=== PATIENT | male | born 1930 | race Caucasian/White ===

== ENCOUNTER 2017-05-14 10:03 | Inpatient (IN) ==
[2017-05-14] MEDS ORDERED: ONDANSETRON 4 MG/2 ML VIAL IV STA (10:26)
[2017-05-14] MEDS ORDERED: NITROGLYCERIN 2% OINT 1 INCH/GM PACK TOP STA (10:26)
[2017-05-14] MEDS ORDERED: MORPHINE 2 MG/1 ML SYRINGE IV STA (10:26)
[2017-05-14] MEDS ORDERED: NITROGLYCERIN 2% OINT 1 INCH/GM PACK TOP ONE (10:26)
[2017-05-14] MEDS ORDERED: ASPIRIN 325 MG TABLET PO STA (10:26)
[2017-05-14] MEDS ORDERED: ENOXAPARIN 80 MG/0.8 ML SYRINGE SUBCUT ONE ×2 (10:26→11:08)
[2017-05-14] MEDS ORDERED: MORPHINE 10 MG/1 ML VIAL ONE (10:27)
[2017-05-14] MEDS ORDERED: ONDANSETRON 4 MG/2 ML VIAL ONE (10:27)
[2017-05-14] MEDS ORDERED: ASPIRIN 325 MG TABLET ONE (10:30)
[2017-05-14 10:36] LABS: Basophils % 0.4 % (0.0-0.8); Eosinophils # 0.1 10*3/uL (0.0-0.87); Eosinophils % 0.5 % (0.00-10.9); Hematocrit 44.7 VOL% (42.0-52.0); Hemoglobin 14.8 GM/DL (14.0-18.0); Immature Granulocytes % 0.6 %; Immature Granulocytes Absolute 0.07 #; Lymphocytes % 9.2 % (21.2-54.2); Mean Corpuscular HGB Conc 33.1 GM/DL (32-36); Mean Corpuscular Hemoglobin 34 PG (27-34); Mean Corpuscular Volume 103.7 FL (87-102); Mean Platelet Volume 11.5 FL (9.6-12.0); Monocytes # 0.8 10*3/uL (0.11-0.8); Monocytes % 7.5 % (1.7-12.7); Neutrophils % 81.8 % (38.7-73.9); Platelet Count 178 T/CUMM (130-400); Red Blood Count 4.31 MC/CUMM (3.8-5.5); Red Cell Distribution Width 12.8 % (9.3-17.3)
[2017-05-14] MEDS ORDERED: LIDOCAINE 1% 20 ML VIAL ONE (10:39)
[2017-05-14] MEDS ORDERED: HYDROmorphone 2 MG/1 ML VIAL ONE (10:40)
[2017-05-14] MEDS ORDERED: MIDAZOLAM 2 MG/2 ML VIAL ONE (10:40)
[2017-05-14 10:45] LABS: PT Patient Result 10.7 SECS
[2017-05-14] MEDS ORDERED: ENOXAPARIN 30 MG/0.3 ML SYRINGE ONE (11:01)
[2017-05-14] MEDS ORDERED: TIROFIBAN 5,000 MCG/100 ML PREMIX IV ONE (11:05)
[2017-05-14 11:19] LABS: Albumin 4.1 G/DL (3.4-5.0); Bilirubin,Total 0.6 MG/DL (0.2-1.0); Osmolality,Calculated 290.4 MOS/KG (273-304); Potassium 4.5 MMOL/L (3.5-5.1); Total Protein 6.9 G/DL (6.4-8.3)
[2017-05-14] MEDS ORDERED: TICAGRELOR 90 MG TABLET ONE (12:01)
[2017-05-14] MEDS ORDERED: NITROGLYCERIN SL 0.4 MG TABLET SL PRN (12:04)
[2017-05-14] MEDS ORDERED: TIROFIBAN 5,000 MCG/100 ML PREMIX IV SCH (12:30)
[2017-05-14] MEDS: SODIUM CHLORIDE 0.45% 1,000 ML IV SCH (12:49)
[2017-05-14] MEDS: ROSUVASTATIN 20 MG TABLET PO SCH (13:11)
[2017-05-14] MEDS ORDERED: ONDANSETRON 4 MG/2 ML VIAL IV PRN (14:42)
[2017-05-14] MEDS: NITROGLYCERIN DRIP 50 MG/250 ML BOTTLE IV SCH (15:26)
[2017-05-14] MEDS: METOPROLOL TARTRATE 50 MG TABLET PO SCH (15:26)
[2017-05-14] MEDS: TICAGRELOR 90 MG TABLET PO SCH (22:27)
[2017-05-15] MEDS: METOPROLOL TARTRATE 50 MG TABLET PO SCH ×4 (00:47→20:15)
[2017-05-15] MEDS: SODIUM CHLORIDE 0.45% 1,000 ML IV SCH ×3 (00:57→15:46)
[2017-05-15 06:09] LABS: Basophils % 0.3 % (0.0-0.8); Eosinophils % 0.2 % (0.00-10.9); Hematocrit 40.2 VOL% (42.0-52.0); Hemoglobin 13.2 GM/DL (14.0-18.0); Immature Granulocytes % 0.6 %; Immature Granulocytes Absolute 0.07 #; Lymphocytes # 0.9 10*3/uL (1.4-4.0); Lymphocytes % 8.6 % (21.2-54.2); Mean Corpuscular HGB Conc 32.8 GM/DL (32-36); Mean Corpuscular Hemoglobin 34 PG (27-34); Mean Corpuscular Volume 102.8 FL (87-102); Mean Platelet Volume 11.7 FL (9.6-12.0); Monocytes # 1.3 10*3/uL (0.11-0.8); Monocytes % 11.5 % (1.7-12.7); Neutrophils # 8.6 10*3/uL (1.4-7.4); Neutrophils % 78.8 % (38.7-73.9); Platelet Count 174 T/CUMM (130-400); Red Blood Count 3.91 MC/CUMM (3.8-5.5); Red Cell Distribution Width 13.2 % (9.3-17.3); White Blood Count 10.9 T/CUMM (4-12)
[2017-05-15] MEDS: ACETAMINOPHEN 325 MG TABLET PO PRN ×2 (06:14→14:21)
[2017-05-15 06:45] LABS: Calcium 8.3 MG/DL (8.5-10.1); Osmolality,Calculated 290.3 MOS/KG (273-304); Potassium 4.9 MMOL/L (3.5-5.1)
[2017-05-15 07:24] LABS: CKMB % 4.5 %
[2017-05-15 07:26] LABS: Troponin I Only > 200.000 NG/ML (0.00-0.045)
[2017-05-15] MEDS: ASPIRIN EC 81 MG TABLET PO SCH (09:41)
[2017-05-15] MEDS: TICAGRELOR 90 MG TABLET PO SCH ×2 (09:41→20:15)
[2017-05-15] MEDS: ROSUVASTATIN 20 MG TABLET PO SCH ×2 (09:41→20:15)
[2017-05-15] MEDS: PANTOPRAZOLE 40 MG TABLET PO SCH (09:42)
[2017-05-15] MEDS ORDERED: ALUM/MAG/SIMETH/LIDO VISC 1:1 30 ML BOTTLE PO ONE (11:39)
[2017-05-15] MEDS: NITROGLYCERIN DRIP 50 MG/250 ML BOTTLE IV SCH (15:47)
[2017-05-15] MEDS: ZALEPLON 5 MG CAPSULE PO PRN (20:16)
[2017-05-16 06:44] LABS: Basophils % 0.1 % (0.0-0.8); Hematocrit 36.7 VOL% (42.0-52.0); Hemoglobin 12.5 GM/DL (14.0-18.0); Immature Granulocytes % 0.9 %; Immature Granulocytes Absolute 0.13 #; Lymphocytes # 0.7 10*3/uL (1.4-4.0); Lymphocytes % 5.1 % (21.2-54.2); Mean Corpuscular HGB Conc 34.1 GM/DL (32-36); Mean Corpuscular Hemoglobin 34 PG (27-34); Mean Corpuscular Volume 100.3 FL (87-102); Mean Platelet Volume 12.1 FL (9.6-12.0); Monocytes # 1.6 10*3/uL (0.11-0.8); Monocytes % 11.5 % (1.7-12.7); Neutrophils # 11.7 10*3/uL (1.4-7.4); Neutrophils % 82.4 % (38.7-73.9); Platelet Count 159 T/CUMM (130-400); Red Blood Count 3.66 MC/CUMM (3.8-5.5); White Blood Count 14.2 T/CUMM (4-12)
[2017-05-16 07:12] LABS: Calcium 8.1 MG/DL (8.5-10.1); Magnesium 2.6 MG/DL (1.8-2.4); Osmolality,Calculated 297.5 MOS/KG (273-304)
[2017-05-16 07:22] LABS: Risk Ratio 1.69; VLDL CHOLESTEROL 17.4 MG/DL
[2017-05-16] MEDS: PANTOPRAZOLE 40 MG TABLET PO SCH (09:40)
[2017-05-16] MEDS: TICAGRELOR 90 MG TABLET PO SCH ×2 (09:40→20:06)
[2017-05-16] MEDS: ASPIRIN EC 81 MG TABLET PO SCH (09:40)
[2017-05-16] MEDS: METOPROLOL TARTRATE 50 MG TABLET PO SCH (09:41)
[2017-05-16] MEDS: METOPROLOL SUCCINATE XL 25 MG TABLET PO SCH ×2 (11:37→20:06)
[2017-05-16] MEDS: SODIUM CHLORIDE 0.45% 1,000 ML IV SCH (11:37)
[2017-05-16] MEDS ORDERED: ALBUTEROL/IPRATROPIUM 3 ML NEB RESP TX ONE (13:59)
[2017-05-16] MEDS ORDERED: ALBUTEROL/IPRATROPIUM 3 ML NEB RESP TX PRN (14:39)
[2017-05-16] MEDS: NITROGLYCERIN DRIP 50 MG/250 ML BOTTLE IV SCH ×2 (19:00→23:50)
[2017-05-16] MEDS: ROSUVASTATIN 20 MG TABLET PO SCH (20:06)
[2017-05-16] MEDS: ACETAMINOPHEN 325 MG TABLET PO PRN (20:07)
[2017-05-17] MEDS: SODIUM CHLORIDE 0.45% 1,000 ML IV SCH ×2 (04:00→06:59)
[2017-05-17 04:54] LABS: Basophils % 0.2 % (0.0-0.8); Eosinophils % 0.3 % (0.00-10.9); Hematocrit 32.1 VOL% (42.0-52.0); Hemoglobin 10.6 GM/DL (14.0-18.0); Immature Granulocytes % 0.8 %; Immature Granulocytes Absolute 0.09 #; Lymphocytes # 0.6 10*3/uL (1.4-4.0); Lymphocytes % 5.3 % (21.2-54.2); Mean Corpuscular Hemoglobin 34 PG (27-34); Mean Corpuscular Volume 102.6 FL (87-102); Mean Platelet Volume 12.1 FL (9.6-12.0); Monocytes # 1.3 10*3/uL (0.11-0.8); Neutrophils # 9.9 10*3/uL (1.4-7.4); Neutrophils % 82.4 % (38.7-73.9); Platelet Count 142 T/CUMM (130-400); Red Blood Count 3.13 MC/CUMM (3.8-5.5)
[2017-05-17 05:28] LABS: Calcium 7.9 MG/DL (8.5-10.1); Magnesium 2.5 MG/DL (1.8-2.4); Potassium 4.9 MMOL/L (3.5-5.1)
[2017-05-17] MEDS: METOPROLOL SUCCINATE XL 25 MG TABLET PO SCH ×2 (08:53→20:35)
[2017-05-17] MEDS: TICAGRELOR 90 MG TABLET PO SCH ×2 (08:54→20:34)
[2017-05-17] MEDS: PANTOPRAZOLE 40 MG TABLET PO SCH (08:54)
[2017-05-17] MEDS: ASPIRIN EC 81 MG TABLET PO SCH (08:54)
[2017-05-17] MEDS: guaiFENesin/DM ER 600-30 MG TABLET PO PRN (20:34)
[2017-05-17] MEDS: ROSUVASTATIN 20 MG TABLET PO SCH (20:34)
[2017-05-18] MEDS: SODIUM CHLORIDE 0.45% 1,000 ML IV SCH ×3 (01:07→23:16)
[2017-05-18 05:32] LABS: Basophils % 0.1 % (0.0-0.8); Eosinophils % 0.3 % (0.00-10.9); Hematocrit 33.8 VOL% (42.0-52.0); Hemoglobin 10.8 GM/DL (14.0-18.0); Immature Granulocytes % 0.7 %; Immature Granulocytes Absolute 0.08 #; Lymphocytes # 0.5 10*3/uL (1.4-4.0); Lymphocytes % 4.7 % (21.2-54.2); Mean Corpuscular Hemoglobin 33 PG (27-34); Mean Corpuscular Volume 104.6 FL (87-102); Mean Platelet Volume 12.5 FL (9.6-12.0); Monocytes # 0.9 10*3/uL (0.11-0.8); Monocytes % 8.4 % (1.7-12.7); Neutrophils # 9.6 10*3/uL (1.4-7.4); Neutrophils % 85.8 % (38.7-73.9); Platelet Count 149 T/CUMM (130-400); Red Blood Count 3.23 MC/CUMM (3.8-5.5); White Blood Count 11.2 T/CUMM (4-12)
[2017-05-18 06:02] LABS: Calcium 8.1 MG/DL (8.5-10.1); Magnesium 2.7 MG/DL (1.8-2.4); Osmolality,Calculated 291.2 MOS/KG (273-304); Potassium 4.7 MMOL/L (3.5-5.1)
[2017-05-18 06:28] LABS: Eosinophils 1 % (0-10); Giant Platelets Few; Hypochromasia 1+; Lymphocytes 4 % (20-55); Ovalocytes Slight; Platelet Estimate Normal; Segmented Neutrophils 90 % (50-85); Total Cells Counted 100
[2017-05-18] MEDS: METOPROLOL SUCCINATE XL 25 MG TABLET PO SCH ×2 (08:44→20:28)
[2017-05-18] MEDS: PANTOPRAZOLE 40 MG TABLET PO SCH (08:44)
[2017-05-18] MEDS: TICAGRELOR 90 MG TABLET PO SCH ×2 (08:44→20:27)
[2017-05-18] MEDS: ASPIRIN EC 81 MG TABLET PO SCH (08:44)
[2017-05-18] MEDS ORDERED: GLUCAGON 1 MG VIAL IM PRN (10:51)
[2017-05-18] MEDS ORDERED: DEXTROSE 50% 25 GM/50 ML VIAL IV PRN (10:51)
[2017-05-18] MEDS: INSULIN REGULAR 100 UNIT/ML SUBCUT SCH ×3 (12:15→20:27)
[2017-05-18] MEDS: LEVOFLOXACIN 250 MG TABLET PO SCH (12:15)
[2017-05-18] MEDS: ALBUTEROL/IPRATROPIUM 3 ML NEB RESP TX SCH ×2 (13:45→19:49)
[2017-05-18 16:58] LABS: Apearance,Urine Slightly Hazy (Clear); Bacteria,Urine Occasional /HPF (Few); Bilirubin,Urine Negative (Negative); Blood, Urine Moderate mg/dL (Negative); Glucose,Urine (UA) 50 mg/dL (Negative); Ketones,Urine Negative (Negative); Mucus,Urine Occasional /LPF (Occasional); Nitrite,Urine Negative (Negative); Protein,Urine Negative; RBC,Urine <1 /HPF (0-4); Squamous Epithelial Cell,Urine Occasional /HPF (0-10); Urine Color Yellow (Yellow); Urine Specific Gravity 1.015 (1.001-1.035); Urine Urobilinogen < 2.0 EU/DL (0.2-1.0); WBC,Urine 2 /HPF (0-6)
[2017-05-18] MEDS: POLYETHYLENE GLYCOL POWDER 17 GM PACK PO SCH (18:01)
[2017-05-18] MEDS: TOBRAMYCIN/DEXAMETHASONE 0.3%-0.1% OPH SUSP 2.5 ML BOTTLE LEFT EYE SCH (20:27)
[2017-05-18] MEDS: ROSUVASTATIN 20 MG TABLET PO SCH (20:27)
[2017-05-18] MEDS: ERYTHROMYCIN 0.5% OPHT OINT 3.5 GM TUBE LEFT EYE PRN (20:27)
[2017-05-18] MEDS: guaiFENesin/DM ER 600-30 MG TABLET PO PRN (20:29)
[2017-05-19] MEDS: ALBUTEROL/IPRATROPIUM 3 ML NEB RESP TX SCH ×4 (00:18→20:53)
[2017-05-19 04:43] LABS: Basophils % 0.2 % (0.0-0.8); Eosinophils # 0.1 10*3/uL (0.0-0.87); Eosinophils % 0.8 % (0.00-10.9); Hematocrit 32.6 VOL% (42.0-52.0); Immature Granulocytes % 1.1 %; Immature Granulocytes Absolute 0.09 #; Lymphocytes # 0.7 10*3/uL (1.4-4.0); Lymphocytes % 8.3 % (21.2-54.2); Mean Corpuscular HGB Conc 33.7 GM/DL (32-36); Mean Corpuscular Hemoglobin 34 PG (27-34); Mean Corpuscular Volume 99.7 FL (87-102); Mean Platelet Volume 11.9 FL (9.6-12.0); Monocytes # 0.8 10*3/uL (0.11-0.8); Monocytes % 9.3 % (1.7-12.7); NRBC # 0.02 10*3/uL; Neutrophils # 6.8 10*3/uL (1.4-7.4); Neutrophils % 80.3 % (38.7-73.9); Platelet Count 170 T/CUMM (130-400); Red Blood Count 3.27 MC/CUMM (3.8-5.5); White Blood Count 8.5 T/CUMM (4-12)
[2017-05-19 05:19] LABS: Calcium 8.2 MG/DL (8.5-10.1); Magnesium 2.9 MG/DL (1.8-2.4); Osmolality,Calculated 298.7 MOS/KG (273-304); Potassium 4.3 MMOL/L (3.5-5.1)
[2017-05-19] MEDS: INSULIN REGULAR 100 UNIT/ML SUBCUT SCH ×4 (08:36→20:22)
[2017-05-19] MEDS: ASPIRIN EC 81 MG TABLET PO SCH (08:37)
[2017-05-19] MEDS: POLYETHYLENE GLYCOL POWDER 17 GM PACK PO SCH (08:37)
[2017-05-19] MEDS: PANTOPRAZOLE 40 MG TABLET PO SCH (08:37)
[2017-05-19] MEDS: METOPROLOL SUCCINATE XL 25 MG TABLET PO SCH ×2 (08:37→20:23)
[2017-05-19] MEDS: TICAGRELOR 90 MG TABLET PO SCH ×2 (08:37→20:25)
[2017-05-19] MEDS: LEVOFLOXACIN 250 MG TABLET PO SCH (08:37)
[2017-05-19] MEDS: ERYTHROMYCIN 0.5% OPHT OINT 3.5 GM TUBE LEFT EYE PRN (08:38)
[2017-05-19] MEDS: TOBRAMYCIN/DEXAMETHASONE 0.3%-0.1% OPH SUSP 2.5 ML BOTTLE LEFT EYE SCH ×2 (08:38→20:25)
[2017-05-19] MEDS: guaiFENesin/DM ER 600-30 MG TABLET PO PRN (20:25)
[2017-05-19] MEDS: ROSUVASTATIN 20 MG TABLET PO SCH (20:26)
[2017-05-20] MEDS: ALUMINUM/MAGNES/SIMETH MAX STR 30 ML UDCUP PO PRN ×3 (00:54→17:15)
[2017-05-20] MEDS: ALBUTEROL/IPRATROPIUM 3 ML NEB RESP TX SCH ×5 (00:59→23:55)
[2017-05-20] MEDS: guaiFENesin/DM ER 600-30 MG TABLET PO PRN (04:50)
[2017-05-20 06:04] LABS: Basophils % 0.2 % (0.0-0.8); Eosinophils % 0.1 % (0.00-10.9); Hematocrit 36.2 VOL% (42.0-52.0); Hemoglobin 12.2 GM/DL (14.0-18.0); Immature Granulocytes % 0.9 %; Immature Granulocytes Absolute 0.08 #; Lymphocytes # 0.3 10*3/uL (1.4-4.0); Lymphocytes % 3.3 % (21.2-54.2); Mean Corpuscular HGB Conc 33.7 GM/DL (32-36); Mean Corpuscular Hemoglobin 34 PG (27-34); Mean Platelet Volume 11.5 FL (9.6-12.0); Monocytes # 0.6 10*3/uL (0.11-0.8); Monocytes % 6.9 % (1.7-12.7); NRBC # 0.02 10*3/uL; Neutrophils # 7.7 10*3/uL (1.4-7.4); Neutrophils % 88.6 % (38.7-73.9); Platelet Count 237 T/CUMM (130-400); Red Blood Count 3.62 MC/CUMM (3.8-5.5); White Blood Count 8.7 T/CUMM (4-12)
[2017-05-20 06:27] LABS: Band Neutrophils 2 % (0-10); Lymphocytes 12 % (20-55); Macrocytosis 2+; Platelet Estimate Normal; Segmented Neutrophils 84 % (50-85); Total Cells Counted 100
[2017-05-20 06:34] LABS: Calcium 8.5 MG/DL (8.5-10.1); Osmolality,Calculated 298.8 MOS/KG (273-304); Potassium 5.4 MMOL/L (3.5-5.1)
[2017-05-20] MEDS: POLYETHYLENE GLYCOL POWDER 17 GM PACK PO SCH (08:10)
[2017-05-20] MEDS: METOPROLOL SUCCINATE XL 25 MG TABLET PO SCH ×2 (08:10→21:08)
[2017-05-20] MEDS: TICAGRELOR 90 MG TABLET PO SCH ×2 (08:11→21:08)
[2017-05-20] MEDS: PANTOPRAZOLE 40 MG TABLET PO SCH (08:11)
[2017-05-20] MEDS: LEVOFLOXACIN 250 MG TABLET PO SCH (08:11)
[2017-05-20] MEDS: ASPIRIN EC 81 MG TABLET PO SCH (08:11)
[2017-05-20] MEDS: INSULIN REGULAR 100 UNIT/ML SUBCUT SCH ×4 (08:12→21:09)
[2017-05-20] MEDS ORDERED: SIMETHICONE CHEW 125 MG TABLET PO PRN (08:40)
[2017-05-20] MEDS ORDERED: BISACODYL 10 MG SUPP RECTAL PRN (08:41)
[2017-05-20] MEDS: BISACODYL 5 MG TABLET PO PRN (09:18)
[2017-05-20] MEDS: TOBRAMYCIN/DEXAMETHASONE 0.3%-0.1% OPH SUSP 2.5 ML BOTTLE LEFT EYE SCH ×2 (09:18→21:09)
[2017-05-20] MEDS: ZALEPLON 5 MG CAPSULE PO PRN (21:07)
[2017-05-20] MEDS: ROSUVASTATIN 20 MG TABLET PO SCH (21:08)
[2017-05-21 05:45] LABS: Basophils % 0.2 % (0.0-0.8); Eosinophils # 0.1 10*3/uL (0.0-0.87); Eosinophils % 0.9 % (0.00-10.9); Hematocrit 36.7 VOL% (42.0-52.0); Hemoglobin 12.5 GM/DL (14.0-18.0); Immature Granulocytes % 1.1 %; Immature Granulocytes Absolute 0.13 #; Lymphocytes # 0.7 10*3/uL (1.4-4.0); Lymphocytes % 5.8 % (21.2-54.2); Mean Corpuscular HGB Conc 34.1 GM/DL (32-36); Mean Corpuscular Hemoglobin 34 PG (27-34); Mean Corpuscular Volume 100.3 FL (87-102); Mean Platelet Volume 11.5 FL (9.6-12.0); Monocytes # 0.9 10*3/uL (0.11-0.8); NRBC # 0.03 10*3/uL; Neutrophils # 9.8 10*3/uL (1.4-7.4); Platelet Count 267 T/CUMM (130-400); Red Blood Count 3.66 MC/CUMM (3.8-5.5); Red Cell Distribution Width 13.2 % (9.3-17.3); White Blood Count 11.6 T/CUMM (4-12)
[2017-05-21 06:05] LABS: Calcium 8.6 MG/DL (8.5-10.1); Magnesium 3.1 MG/DL (1.8-2.4); Osmolality,Calculated 304.5 MOS/KG (273-304); Potassium 5.1 MMOL/L (3.5-5.1)
[2017-05-21] MEDS: ALBUTEROL/IPRATROPIUM 3 ML NEB RESP TX SCH ×3 (07:21→20:09)
[2017-05-21] MEDS: INSULIN REGULAR 100 UNIT/ML SUBCUT SCH ×5 (08:32→21:23)
[2017-05-21] MEDS: METOPROLOL SUCCINATE XL 25 MG TABLET PO SCH ×2 (08:34→21:22)
[2017-05-21] MEDS: ASPIRIN EC 81 MG TABLET PO SCH (08:34)
[2017-05-21] MEDS: LEVOFLOXACIN 250 MG TABLET PO SCH (08:34)
[2017-05-21] MEDS: TICAGRELOR 90 MG TABLET PO SCH ×2 (08:34→21:22)
[2017-05-21] MEDS: POLYETHYLENE GLYCOL POWDER 17 GM PACK PO SCH (08:34)
[2017-05-21] MEDS: PANTOPRAZOLE 40 MG TABLET PO SCH (08:34)
[2017-05-21] MEDS: ERYTHROMYCIN 0.5% OPHT OINT 3.5 GM TUBE LEFT EYE PRN (09:07)
[2017-05-21] MEDS: TOBRAMYCIN/DEXAMETHASONE 0.3%-0.1% OPH SUSP 2.5 ML BOTTLE LEFT EYE SCH ×2 (09:09→21:23)
[2017-05-21] MEDS: MONTELUKAST 10 MG TABLET PO SCH (12:21)
[2017-05-21] MEDS: DORNASE ALFA 2.5 MG/2.5 ML VIAL RESP TX SCH ×2 (12:21→20:08)
[2017-05-21] MEDS: ALUMINUM/MAGNES/SIMETH MAX STR 30 ML UDCUP PO PRN (21:22)
[2017-05-21] MEDS: ZALEPLON 5 MG CAPSULE PO PRN (21:22)
[2017-05-21] MEDS: ROSUVASTATIN 20 MG TABLET PO SCH (21:22)
[2017-05-22] MEDS: ALBUTEROL/IPRATROPIUM 3 ML NEB RESP TX SCH ×4 (00:25→20:37)
[2017-05-22 05:33] LABS: Basophils % 0.3 % (0.0-0.8); Eosinophils # 0.1 10*3/uL (0.0-0.87); Eosinophils % 0.8 % (0.00-10.9); Hematocrit 35.3 VOL% (42.0-52.0); Hemoglobin 11.9 GM/DL (14.0-18.0); Immature Granulocytes % 1.1 %; Lymphocytes # 0.7 10*3/uL (1.4-4.0); Lymphocytes % 7.7 % (21.2-54.2); Mean Corpuscular HGB Conc 33.7 GM/DL (32-36); Mean Corpuscular Hemoglobin 34 PG (27-34); Monocytes % 10.7 % (1.7-12.7); NRBC # 0.02 10*3/uL; Neutrophils # 7.5 10*3/uL (1.4-7.4); Neutrophils % 79.4 % (38.7-73.9); Platelet Count 267 T/CUMM (130-400); Red Blood Count 3.53 MC/CUMM (3.8-5.5); Red Cell Distribution Width 13.2 % (9.3-17.3); White Blood Count 9.5 T/CUMM (4-12)
[2017-05-22 06:09] LABS: Calcium 8.7 MG/DL (8.5-10.1); Magnesium 3.2 MG/DL (1.8-2.4); Osmolality,Calculated 297.5 MOS/KG (273-304)
[2017-05-22] MEDS: DORNASE ALFA 2.5 MG/2.5 ML VIAL RESP TX SCH ×2 (07:17→20:37)
[2017-05-22] MEDS: INSULIN REGULAR 100 UNIT/ML SUBCUT SCH ×4 (07:23→21:45)
[2017-05-22] MEDS: ERYTHROMYCIN 0.5% OPHT OINT 3.5 GM TUBE LEFT EYE PRN (08:58)
[2017-05-22] MEDS: TOBRAMYCIN/DEXAMETHASONE 0.3%-0.1% OPH SUSP 2.5 ML BOTTLE LEFT EYE SCH ×2 (09:00→21:46)
[2017-05-22] MEDS: ASPIRIN EC 81 MG TABLET PO SCH (12:31)
[2017-05-22] MEDS: MONTELUKAST 10 MG TABLET PO SCH (12:31)
[2017-05-22] MEDS: LEVOFLOXACIN 250 MG TABLET PO SCH (12:31)
[2017-05-22] MEDS: POLYETHYLENE GLYCOL POWDER 17 GM PACK PO SCH (12:31)
[2017-05-22] MEDS: TICAGRELOR 90 MG TABLET PO SCH ×2 (12:31→21:45)
[2017-05-22] MEDS: PANTOPRAZOLE 40 MG TABLET PO SCH (12:31)
[2017-05-22] MEDS: METOPROLOL SUCCINATE XL 25 MG TABLET PO SCH ×2 (12:32→21:45)
[2017-05-22] MEDS: FUROSEMIDE 40 MG/4 ML VIAL IV SCH (16:48)
[2017-05-22] MEDS: ROSUVASTATIN 20 MG TABLET PO SCH (21:45)
[2017-05-23] MEDS: ALBUTEROL/IPRATROPIUM 3 ML NEB RESP TX SCH ×4 (01:52→19:31)
[2017-05-23] MEDS: BISACODYL 5 MG TABLET PO PRN ×2 (06:13→09:02)
[2017-05-23] MEDS: INSULIN REGULAR 100 UNIT/ML SUBCUT SCH ×4 (08:24→21:04)
[2017-05-23] MEDS: DORNASE ALFA 2.5 MG/2.5 ML VIAL RESP TX SCH ×2 (08:36→19:31)
[2017-05-23] MEDS: POLYETHYLENE GLYCOL POWDER 17 GM PACK PO SCH (09:00)
[2017-05-23] MEDS: TICAGRELOR 90 MG TABLET PO SCH ×2 (09:01→20:33)
[2017-05-23] MEDS: ASPIRIN EC 81 MG TABLET PO SCH (09:01)
[2017-05-23] MEDS: MONTELUKAST 10 MG TABLET PO SCH (09:01)
[2017-05-23] MEDS: LEVOFLOXACIN 250 MG TABLET PO SCH (09:01)
[2017-05-23] MEDS: PANTOPRAZOLE 40 MG TABLET PO SCH (09:02)
[2017-05-23] MEDS: FUROSEMIDE 40 MG/4 ML VIAL IV SCH ×2 (09:03→17:39)
[2017-05-23] MEDS: TOBRAMYCIN/DEXAMETHASONE 0.3%-0.1% OPH SUSP 2.5 ML BOTTLE LEFT EYE SCH ×2 (09:03→21:03)
[2017-05-23] MEDS: METOPROLOL SUCCINATE XL 25 MG TABLET PO SCH ×2 (09:03→20:33)
[2017-05-23] MEDS: ALUMINUM/MAGNES/SIMETH MAX STR 30 ML UDCUP PO PRN (15:35)
[2017-05-23] MEDS: ROSUVASTATIN 20 MG TABLET PO SCH (20:33)
[2017-05-23] MEDS: ERYTHROMYCIN 0.5% OPHT OINT 3.5 GM TUBE LEFT EYE PRN (20:33)
[2017-05-23] MEDS: ACETAMINOPHEN 325 MG TABLET PO PRN (21:04)
[2017-05-24] MEDS: ALBUTEROL/IPRATROPIUM 3 ML NEB RESP TX SCH ×4 (00:46→20:01)
[2017-05-24 03:20] LABS: Basophils % 0.3 % (0.0-0.8); Eosinophils # 0.1 10*3/uL (0.0-0.87); Hematocrit 38.8 VOL% (42.0-52.0); Hemoglobin 12.9 GM/DL (14.0-18.0); Immature Granulocytes % 1.8 %; Lymphocytes # 0.7 10*3/uL (1.4-4.0); Lymphocytes % 6.1 % (21.2-54.2); Mean Corpuscular HGB Conc 33.2 GM/DL (32-36); Mean Corpuscular Hemoglobin 33 PG (27-34); Mean Corpuscular Volume 99.5 FL (87-102); Mean Platelet Volume 10.6 FL (9.6-12.0); Monocytes # 1.2 10*3/uL (0.11-0.8); Monocytes % 10.5 % (1.7-12.7); Neutrophils % 80.3 % (38.7-73.9); Platelet Count 322 T/CUMM (130-400); Red Cell Distribution Width 13.2 % (9.3-17.3); White Blood Count 11.2 T/CUMM (4-12)
[2017-05-24 03:32] LABS: Calcium 8.9 MG/DL (8.5-10.1); Osmolality,Calculated 304.4 MOS/KG (273-304); Potassium 4.3 MMOL/L (3.5-5.1)
[2017-05-24] MEDS: METOPROLOL SUCCINATE XL 25 MG TABLET PO SCH ×2 (08:58→21:36)
[2017-05-24] MEDS: INSULIN REGULAR 100 UNIT/ML SUBCUT SCH ×4 (08:58→21:36)
[2017-05-24] MEDS: ASPIRIN EC 81 MG TABLET PO SCH (08:59)
[2017-05-24] MEDS: TICAGRELOR 90 MG TABLET PO SCH ×2 (08:59→21:36)
[2017-05-24] MEDS: FUROSEMIDE 40 MG/4 ML VIAL IV SCH (08:59)
[2017-05-24] MEDS: MONTELUKAST 10 MG TABLET PO SCH (08:59)
[2017-05-24] MEDS: LEVOFLOXACIN 250 MG TABLET PO SCH (08:59)
[2017-05-24] MEDS: POLYETHYLENE GLYCOL POWDER 17 GM PACK PO SCH (08:59)
[2017-05-24] MEDS: TOBRAMYCIN/DEXAMETHASONE 0.3%-0.1% OPH SUSP 2.5 ML BOTTLE LEFT EYE SCH ×2 (09:00→21:37)
[2017-05-24] MEDS: PANTOPRAZOLE 40 MG TABLET PO SCH (09:00)
[2017-05-24] MEDS: DORNASE ALFA 2.5 MG/2.5 ML VIAL RESP TX SCH (09:18)
[2017-05-24] MEDS: ISOSORBIDE MONONITRATE 30 MG TABLET PO SCH (12:50)
[2017-05-24] MEDS: hydrALAZINE 10 MG TABLET PO SCH ×2 (17:11→21:36)
[2017-05-24] MEDS: ROSUVASTATIN 20 MG TABLET PO SCH (21:36)
[2017-05-25] MEDS: ALBUTEROL/IPRATROPIUM 3 ML NEB RESP TX SCH ×3 (01:53→14:13)
[2017-05-25 04:53] LABS: Basophils % 0.4 % (0.0-0.8); Eosinophils # 0.2 10*3/uL (0.0-0.87); Eosinophils % 1.7 % (0.00-10.9); Hematocrit 39.1 VOL% (42.0-52.0); Hemoglobin 13.4 GM/DL (14.0-18.0); Lymphocytes # 0.8 10*3/uL (1.4-4.0); Lymphocytes % 7.4 % (21.2-54.2); Mean Corpuscular HGB Conc 34.3 GM/DL (32-36); Mean Corpuscular Hemoglobin 34 PG (27-34); Mean Corpuscular Volume 97.8 FL (87-102); Mean Platelet Volume 10.5 FL (9.6-12.0); Monocytes # 1.2 10*3/uL (0.11-0.8); Monocytes % 12.2 % (1.7-12.7); Neutrophils # 7.7 10*3/uL (1.4-7.4); Neutrophils % 76.3 % (38.7-73.9); Platelet Count 341 T/CUMM (130-400); Red Cell Distribution Width 12.8 % (9.3-17.3); White Blood Count 10.1 T/CUMM (4-12)
[2017-05-25 05:23] LABS: Calcium 8.3 MG/DL (8.5-10.1); Osmolality,Calculated 303.5 MOS/KG (273-304); Potassium 4.2 MMOL/L (3.5-5.1)
[2017-05-25] MEDS: DORNASE ALFA 2.5 MG/2.5 ML VIAL RESP TX SCH ×2 (05:49→07:58)
[2017-05-25] MEDS: INSULIN REGULAR 100 UNIT/ML SUBCUT SCH ×2 (08:53→12:02)
[2017-05-25] MEDS: PANTOPRAZOLE 40 MG TABLET PO SCH (09:36)
[2017-05-25] MEDS: METOPROLOL SUCCINATE XL 25 MG TABLET PO SCH (09:36)
[2017-05-25] MEDS: MONTELUKAST 10 MG TABLET PO SCH (09:36)
[2017-05-25] MEDS: ISOSORBIDE MONONITRATE 30 MG TABLET PO SCH (09:36)
[2017-05-25] MEDS: TICAGRELOR 90 MG TABLET PO SCH (09:36)
[2017-05-25] MEDS: hydrALAZINE 10 MG TABLET PO SCH ×2 (09:36→14:50)
[2017-05-25] MEDS: POLYETHYLENE GLYCOL POWDER 17 GM PACK PO SCH (09:37)
[2017-05-25] MEDS: ASPIRIN EC 81 MG TABLET PO SCH (10:13)
[2017-05-25] MEDS: TOBRAMYCIN/DEXAMETHASONE 0.3%-0.1% OPH SUSP 2.5 ML BOTTLE LEFT EYE SCH (10:14)
[2017-05-25 11:58] VITALS: BP 133/71
== END 2017-05-25 16:05 | disposition swing bed (61) | DRG 246 ==
LOC: N.ED 10:03 → N.CL 10:50 → N.CC 12:03 → N.TELEN 05-20 18:00
PROVIDERS: ADMIT Internal Medicine Cardiovascular Disease; ATTEND Internal Medicine Cardiovascular Disease